=== PATIENT | male | born 1975 ===

== ENCOUNTER 2017-08-02 16:24 | Emergency (ER) | payer BC ==
[2017-08-02 16:30] VITALS: TEMP 98.4; O2SAT 97
[2017-08-02] MEDS ORDERED: Sodium Chloride 0.9% 1,000 ML IV STA (16:42)
--- NOTE | 2017-08-02 16:48 | ED PDOC ---
HPI: Wound Care - HPI Time Seen by Provider: 08/02/17 16:32 Chief Complaint (Nursing): Wound Check Chief Complaint (Provider): Evaluation for leg swelling History Per: Patient Exam Limitations: no limitations Onset/Duration Of Symptoms: Hrs (this morning) Quality Of Symptoms: Swollen Additional Complaint(s): Patient is a 42 y/o male with no past medical history who presents to the ED for left leg swelling and discoloration since this morning. Patient reports he had ACL surgery of left leg 5 days prior to arrival, by Dr. Car at [facility]. He states that upon waking up this morning his left leg was purple and swollen from the knee down, and that he slept with his brace on the night prior. He adds that he showered yesterday for the first time with no problems, and notes his knee feels "normal" and notes no abnormal pain. He reports that bruising decreased after elevating the leg earlier today, although swelling remained the same. Patient claims that he was advised to visit the ED after speaking with his doctor earlier today. Patient denies any numbness, tingling, fever, nausea, vomiting, chest pain, shortness of breath, headache, dizziness, or discharge from surgical wound. PCP: Mio Worrell Past Medical History Reviewed: Historical Data, Nursing Documentation, Vital Signs Vital Signs: Last Vital Signs Temp 98.4 F 08/02/17 16:26 Pulse 133 H 08/02/17 16:26 Resp 16 08/02/17 16:26 BP 167/95 H 08/02/17 16:26 Pulse Ox 97 08/02/17 16:26 - Medical History PMH: No Chronic Diseases Denies: Chronic Kidney Disease - Surgical History Other surgeries: Left knee ACL surgical repair - Family History Family History: States: Unknown Family Hx - Social History Current smoker - smoking cessation education provided: Yes (light smoker < 10 cigarettes daily) Alcohol: None Drugs: Denies - Home Medications Home Medications: Ambulatory Orders Medication Instructions Recorded No Known Home Med 11/29/15 - Allergies Allergies/Adverse Reactions: Allergies Allergy/AdvReac Type Severity Reaction Status Date / Time No Known Allergies Allergy Verified 08/02/17 16:49 Review of Systems ROS Statement: Except As Marked, All Systems Reviewed And Found Negative Constitutional: Negative for: Fever Cardiovascular: Negative for: Chest Pain Respiratory: Negative for: Shortness of Breath Gastrointestinal: Negative for: Nausea, Vomiting Musculoskeletal: Positive for: Other (Left leg swelling and bruising from knee down) Neurological: Negative for: Weakness, Numbness, Headache, Dizziness, Other ( Tingling) Physical Exam - Reviewed Nursing Documentation Reviewed: Yes Vital Signs Reviewed: Yes - Physical Exam Appears: Positive for: No Acute Distress Head Exam: Positive for: ATRAUMATIC, NORMOCEPHALIC Skin: Positive for: Normal Color, Warm, Dry Eye Exam: Positive for: Normal appearance Neck: Positive for: Normal, Painless ROM, Supple Cardiovascular/Chest: Positive for: Regular Rate, Rhythm. Negative for: Murmur Respiratory: Positive for: Normal Breath Sounds. Negative for: Respiratory Distress Pulses-Dorsalis Pedis (L): 2+ Pulses-Dorsalis Pedis (R): 2+ Pulses-Post. Tibialis (L): 2+ Pulses-Post. Tibialis (R): 2+ Gastrointestinal/Abdominal: Positive for: Normal Exam Back: Positive for: Normal Inspection. Negative for: L CVA Tenderness, R CVA Tenderness, Vertebral Tenderness Extremity: Positive for: Swelling (General swelling from left knee to foot), Other (Echymosis to medial aspect of left foot). Negative for: Normal ROM ( Left knee limited range of motion due to swelling), Tenderness (No tenderness to lower extremities (bilaterally)) Neurologic/Psych: Positive for: Alert, Oriented (x3). Negative for: Motor/ Sensory Deficits - Laboratory Results Result Diagrams: 08/02/17 16:46 08/02/17 16:46 Interpretation Of Abn Labs: no acute - ECG O2 Sat by Pulse Oximetry: 97 (RA) Pulse Ox Interpretation: Normal - CT Scan/US US Other Rad Studies (CT/US): Read By Radiologist Other Rad Interpretation: no acute - Progress ED Course And Treament: 1950: Stable. AAOx3. Pain controlled. No DVT. Fu with ortho. Was given ativan as pt. states he feels anxious. Medical Decision Making Medical Decision Makin:41 Initial Impression: Leg swelling Initial Plan: --CMP --CBC --PT/PTT --Ativan 0.5 mg IVP --Sodium Chloride 0.9% IV 1,000 mls/hr --US Duplex Lower Extremity Vein Left Scribe Attestation: Documented by Bekah Bejarano, acting as a scribe for Adrian Chun MD Provider Scribe Attestation: All medical record entries made by the Scribe were at my direction and personally dictated by me. I have reviewed the chart and agree that the record accurately reflects my personal performance of the history, physical exam, medical decision making, and the department course for this patient. I have also personally directed, reviewed, and agree with the discharge instructions and disposition. Disposition - Clinical Impression Clinical Impression: Leg swelling - Patient ED Disposition Is Patient to be Admitted: No Counseled Patient/Family Regarding: Studies Performed, Diagnosis, Need For Followup - Disposition Referrals: [facility] [Outside] - 08/03/17 Disposition: Routine/Home Disposition Time: 19:50 Condition: STABLE Additional Instructions: Return if not better in 3 days. Instructions: Leg Edema (ED)
[2017-08-02 16:55] LABS: BASO % 0.5 % (0.0-2.0); EOS # 0.1 K/uL (0.0-0.7); HEMATOCRIT 44.3 % (35.0-51.0); LYMPH # 1.7 K/uL (1.0-4.3); LYMPH % 22.2 % (20.0-40.0); MEAN CELL VOLUME 93.7 fl (80.0-94.0); MEAN CORPUSCULAR HEMOGLOBIN 32.4 pg (27.0-31.0); MEAN CORPUSCULAR HGB CONC 34.6 g/dL (33.0-37.0); MONO # 1.3 K/uL (0.0-0.8); MONO % 17.2 % (0.0-10.0); NEUT # 4.4 K/uL (1.8-7.0); NEUT % 58.1 % (50.0-75.0); RED CELL DISTRIBUTION WIDTH 12.1 % (11.5-14.5); WHITE BLOOD COUNT 7.6 K/uL (4.8-10.8)
[2017-08-02 17:09] LABS: ALB/GLOB RATIO 1.3 (1.0-2.1); ALKALINE PHOSPHATASE 69 U/L (38-126); ALT/SGPT 85 U/L (21-72); AST/SGOT 63 U/L (17-59); BILIRUBIN,TOTAL 0.8 mg/dl (0.2-1.3); BLOOD UREA NITROGEN 12 mg/dl (9-20); CALCIUM 9.5 mg/dL (8.4-10.2); CARBON DIOXIDE 21 mmol/L (22-30); CHLORIDE 103 mmol/L (98-107); GFR AFRICAN-AMERICAN > 60; GLUCOSE,RANDOM 124 mg/dL (75-110); PARTIAL THROMBOPLASTIN TIME 29.9 Seconds (25.6-37.1); SODIUM 138 mmol/l (132-148)
[2017-08-02 18:34] VITALS: BP 122/95; PULSE 98; RESP 19
--- NOTE | 2017-08-03 14:10 | US ---
HISTORY: r/o dvt; swelling . PRIORS: None. FINDINGS: 2-D, color and duplex Doppler analysis of the lower extremity venous circulation using routine protocol from the femoral veins through the popliteal veins. Venous compressibility: Normal. Flow and augmentation patterns: Normal. Visualized veins upper third of calf: Normal. Lopez cyst: None. There is mild subcutaneous edema at the level of the left knee. . IMPRESSION: No sonographic or Doppler evidence for DVT in left lower extremity. Mild subcutaneous edema at the level of the left knee.
== END 2017-08-02 20:07 | disposition home or self-care (01) ==
LOC: H.ER 16:24
DX: M79.89 Other specified soft tissue disorders (principal); Z98.890 Other specified postprocedural states; F17.210 Nicotine dependence, cigarettes, uncomplicated
CPT/HCPCS: 80053; 85025; 85610; 85730; 93971; 96361; 96374; 96376; 99282; J2060; J7040

== ENCOUNTER 2018-11-28 22:06 | Emergency (ER) | payer BC ==
[2018-11-28 22:13] VITALS: BMI 27.3
[2018-11-28 22:15] VITALS: RESP 18
[2018-11-28] MEDS ORDERED: Albuterol-Ipratrop 3 mg / 0.5 (3 ml) UD INH STA (22:24)
[2018-11-28] MEDS ORDERED: Promethazine/Cod 6.25mg-10mg/5ml Syr UD PO STA (22:24)
[2018-11-28] MEDS ORDERED: Albuterol 0.083% Inhal Sol (2.5 mg/3 mL) UD INH STA (22:24)
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
[2018-11-28] MEDS ORDERED: Albuterol 0.083% Inhal Sol (2.5 mg/3 mL) UD ONE (22:36)
[2018-11-28] MEDS ORDERED: Albuterol-Ipratrop 3 mg / 0.5 (3 ml) UD ONE (22:37)
[2018-11-28] MEDS ORDERED: Promethazine/Cod 6.25mg-10mg/5ml Syr UD ONE (22:37)
[2018-11-29 00:27] VITALS: BP 122/78; PULSE 88; TEMP 98.2
--- NOTE | 2018-11-29 09:38 | RAD ---
Date of service: 11/28/2018 HISTORY: Cough for 2 weeks COMPARISON: No prior. TECHNIQUE: Chest PA and lateral FINDINGS: LINES AND TUBES: None. LUNG AND PLEURA: The lungs are well inflated and clear. No pleural effusion or pneumothorax. HEART AND MEDIASTINUM: The heart is not enlarged. No aortic atherosclerotic calcifications present. The hilar and mediastinal contours are within normal limits. SKELETAL STRUCTURES: The bony structures are within normal limits for the patient's age. VISUALIZED UPPER ABDOMEN: Normal. OTHER FINDINGS: None. IMPRESSION: No active pulmonary disease.
[2018-11-29 22:03] VITALS: O2SAT 96
== END 2018-11-29 00:27 | disposition home or self-care (01) ==
LOC: H.ER 22:06
DX: R05 Cough (principal); J40 Bronchitis, not specified as acute or chronic; F17.210 Nicotine dependence, cigarettes, uncomplicated; J06.9 Acute upper respiratory infection, unspecified